=== PATIENT | female | born 1935 | race African-American/Black ===

== ENCOUNTER → 2018-09-30 | Day surgery (SDC) | payer MEDICARE ==
[2018-09-25 10:43] LABS: BASOPHILS # (AUTO) 0.1 (0.0-0.1); BASOPHILS % 0.9 % (0.0-1.0); EOSINOPHILS # (AUTO) 0.2 (0.0-0.4); EOSINOPHILS % 2.8 % (0.0-6.0); HEMATOCRIT 40.6 % (34.2-44.1); HEMOGLOBIN 12.9 g/dL (12.0-16.0); LYMPHOCYTES # (AUTO) 1.5 (1.0-3.2); LYMPHOCYTES % 25.7 % (18.0-39.1); MEAN CORPUSCULAR HEMOGLOBIN 28.2 pg (28-32); MEAN CORPUSCULAR HGB CONC 31.8 g/dL (31-35); MEAN CORPUSCULAR VOLUME 88.8 fL (81-99); MONOCYTES # (AUTO) 0.5 (0.2-0.8); MONOCYTES % 9.1 % (4.4-11.3); NEUTROPHILS # (AUTO) 3.5 (2.1-6.9); NEUTROPHILS % 61.3 % (38.7-80.0); PLATELET COUNT 268 x10e3/uL (140-360); RED BLOOD COUNT 4.57 x10e6/uL (3.6-5.1); RED CELL DISTRIBUTION WIDTH 14.7 % (11.7-14.4)
[2018-09-25 11:05] LABS: ANION GAP 13.2 mmol/L (8-16); BLOOD UREA NITROGEN 11 mg/dL (7-26); BUN/CREATININE RATIO 14 (6-25); CALCIUM 9.8 mg/dL (8.4-10.2); CARBON DIOXIDE 28 mmol/L (22-29); CHLORIDE 101 mmol/L (98-107); CREATININE, SERUM 0.81 mg/dL (0.57-1.11); EST GLOMERULAR FILTRATION RATE > 60 ML/MIN (60-); GLUCOSE 109 mg/dL (74-118); POTASSIUM 4.2 mmol/L (3.5-5.1); SODIUM 138 mmol/L (136-145)
--- NOTE | 2018-09-25 11:13 | Diagnostic Imaging Report ---
EXAM: CHEST 2 VIEWS, PA and lateral DATE: 09/25/2018 Time stamp on exam: 10:16 AM INDICATION: Preoperative COMPARISON: None FINDINGS: LINES/TUBES: None LUNGS: No consolidations or edema. PLEURA: No effusions or pneumothorax. HEART AND MEDIASTINUM: Normal size and contour. BONES AND SOFT TISSUES: No acute findings. Degenerative flowing osteophytosis of the thoracic spine. IMPRESSION: No acute thoracic abnormality. Signed by: Dr. Roldan Garg DO on 09/25/2018 11:10 AM
--- NOTE | 2018-09-25 11:24 | Diagnostic Imaging Report ---
Abdomen, two views. History: Renal stones. Findings: Multiple renal stones are noted overlying the left kidney with a conglomerate largest size measuring 12.7 cm. Smaller stones are noted adjacent to this larger stone which is likely within the renal pelvis. There is an 8 mm interpolar right renal stone. Pelvic calcifications could represent stones versus phleboliths. The intestinal gas pattern is nonobstructive. There no masses. The osseous structures reveal degenerative changes of the spine. IMPRESSION: 1. No acute abdominal abnormality. 2. Multiple renal stones. Signed by: Dr. Roldan Garg DO on 09/25/2018 11:21 AM
[~2018-09-30] MED LIST: AMLODIPINE BESY10 MG PO; ATROPINE SULFATE 1 MG/ML VIAL ONE; B&O 60MG R/S 60 MG SUPP PR ONE; CEFTRIAXONE SOD 1 GM/NS 50 ML 50 ML IV ONE; DEXAMETHASONE SOD PHOS INJ 4 MG/ML VIAL ONE; FENTANYL CITRATE/PF 100MCG/2 ML INJ ONE; FUROSEMIDE40 MG PO; IOPAMIDOL 610MG/1ML 300 MG/ML VIAL IV ONE; LIDOCAINE HCL 2% LOCAL INJ 5 ML SDV VIAL INJ ONE; METAMUCIL POWD283 GM PO; METOPROLOL TART25 MG PO; MICARDIS40 MG PO; NORCO 5-325 TA1 EACH PO; ONDANSETRON HCL INJ 2MG/ML 2ML 2 MG/ML VIAL ONE; PROPOFOL IV EMULSION 10 MG/ML 20 ML VIAL ONE; SEVOFLURANE INHAL SOLN 250 ML PEN BTL ONE; SIMVASTATIN20 MG PO; VIT D2 PO; ZANTAC150 MG PO
--- OUTSIDE RECORDS SUMMARY | 2018-09-30 05:17 | XMS REPORT ---
Author Author [facility] Address Unknown Phone Unavailable Care Team Providers Care Sewer And Drain Technician Name Role Phone ALLYSON NICK Unavailable Unavailable Problems This patient has no known problems. Allergies, Adverse Reactions, Alerts This patient has no known allergies or adverse reactions. Medications This patient has no known medications. Results Test Description Test Time Test Comments Text Results Atomic Results Result Comments ABDOMEN-1VIEW (KU) 2018-09-25 11:18:00 [place] [id number] Patient Name: LYLY CONNELL MR #: [id number] : 1935 Age/Sex: 83/F Req #: [id number] Adm Physician: Ordered by: ALLYSON NICK MD Report #: [id number] Location: OR Room/Bed: Procedure: [id number] DX/ABDOMEN-1VIEW (KUB) Exam Date: Exam Time: REPORT STATUS: Signed Abdomen, two views. History: Renal stones. Findings: Multiple renal stones are noted overlying the left kidney with a conglomerate largest size measuring 12.7 cm. Smaller stones are noted adjacent to this larger stone which is likely within the renal pelvis. There is an 8 mm interpolar right renal stone. Pelvic calcifications could represent stones versus phleboliths. The intestinal gas pattern is nonobstructive. There no masses. The osseous structures reveal degenerative changes of the spine. IMPRESSION: 1. No acute abdominal abnormality. 2. Multiple renal stones. Signed by: Dr. Raffi Garg DO on 09/25/2018 11:21 AM Dictated By: RAFFI GARG DO 1121 Transcribed By: LEIDY on 09/25/18 112 COPY TO: ALLYSON NICK MD CHEST 2 VIEWS 2018-09-25 11:08:00 [place] [id number] Patient Name: LYLY CONNELL MR #: [id number] : 1935 Age/Sex: 83/F Req #: [id number] Adm Physician: Ordered by: ALLYSON NICK MD Report #: [id number] Location: OR Room/Bed: Procedure: [id number] DX/CHEST 2 VIEWS Exam Date: Exam Time: REPORT STATUS: Signed EXAM: CHEST 2 VIEWS, PA and lateral DATE: 09/25/2018 Time stamp on exam: 10 :16 AM INDICATION: Preoperative COMPARISON: None FINDINGS: LINES/TUBES: None LUNGS: No consolidations or edema. PLEURA: No effusions or pneumothorax. HEART AND MEDIASTINUM: Normal size and contour. BONES AND SOFT TISSUES: No acute findings. Degenerative flowing osteophytosis of the thoracic spine. IMPRESSION: No acute thoracic abnormality. Signed by: Dr. Raffi Garg DO on 09/25/2018 11:10 AM Dictated By: RAFFI GARG DO 1110 Transcribed By: LEIDY on 09/25/18 1110 COPY TO: ALLYSON NICK MD SCR MAMM BILATERAL ALEXI CAD DIGITAL 2018-07-07 09:19:13 - SCR MAMM BILATERAL ALEXI CAD DIGITALBILATERAL DIGITAL SCREENING MAMMOGRAM 3D/2D WITH CAD: 07/04/2018CLINICAL: Asymptomatic. Digital breast tomosynthesis was performed in addition to routine CC and MLO views. Current mammographic images were evaluated by either a [employer] M-Vu or a [employer] ImageChecker CAD (computer aided detection system). Comparison is made to exams dated 07/01/2017 mammogram - [facility], 02/03/2016 mammogram, and 02/01/2015 mammogram - [facility]. There are scattered fibroglandular tissues in both breasts. No suspicious mass, architectural distortion, malignant type calcification, or lymph node abnormality detected. Breast architecture is stable compared to prior exams.IMPRESSION: NEGATIVEThere is no mammographic evidence of malignancy. Resume annual screening mammography in one year. Guilhreme Dickey M.D. ss/penrad:07/07/2018 09:19:13 Ditching Machine Engineer: Mindy KINCAID, [facility] sent: BIRADS 1-2 Normal Mammogram BI-RADS: 1 Negative
--- OUTSIDE RECORDS SUMMARY | 2018-09-30 05:17 | XMS REPORT | Clinical Summary ---
Author Author [facility] Organization [facility] Address Unknown Phone Unavailable Care Team Providers Care Wind Farm Designer Name Role Phone Claudio Gandhi MD PCP Allergies No Known Allergies Medications End Date Status Medication Sig Dispensed Refills Start Date Active furosemide (LASIX) 40 mg Take 40 mg by 0 tablet mouth 2 (two) times a day. Active metoprolol tartrate Take 25 mg by 0 (LOPRESSOR) 25 mg tablet mouth 2 (two) times a day. Active traMADol (ULTRAM) 50 mg Take 50 mg by 0 tablet mouth every 6 (six) hours as needed for moderate pain. Active doxazosin (CARDURA) 2 MG Take 2 mg by 0 tablet mouth nightly. Active simvastatin (ZOCOR) 10 MG Take 10 mg by 0 tablet mouth nightly. Active amLODIPine (NORVASC) 10 Take 10 mg by 0 mg tablet mouth daily. Active losartan (COZAAR) 100 MG Take 100 mg 0 tablet by mouth daily. Active omeprazole (PriLOSEC) 40 Take 40 mg by 0 MG capsule mouth daily. Active aspirin (ECOTRIN) 81 MG Take 81 mg by 0 enteric coated tablet mouth daily. Active psyllium seed, sugar, Take by 0 (METAMUCIL) powder mouth. Active albuterol (PROVENTIL) 2.5 Take 2.5 mg 0 mg /3 mL (0.083 %) by nebulizer solution nebulization every 6 (six) hours as needed for wheezing. Active Problems No known active problems Family History Medical History Relation Name Comments Heart attack Father Breast cancer Mother Diabetes Sister Stomach cancer Sister Hypertension Sister Relation Name Status Comments Father Mother Sister Sister Social History Date Tobacco Use Types Packs/Day Years Used Former Smoker Alcohol Use Drinks/Week oz/Week Comments No Sex Assigned at Date Recorded Not on file Industry Job Start Date Occupation Not on file Not on file Not on file Travel End Travel History Travel Start No recent travel history available. Last Filed Vital Signs Not on file Plan of Treatment Health Maintenance Due Date Last Done Comments SHINGLES VACCINES (#1) 1986 65+ PNEUMOCOCCAL VACCINE 2001 (1 of 2 - PCV13) INFLUENZA VACCINE 10/30/2018 Results Not on fileafter 09/29/2017 Insurance Type Payer Benefit Subscriber ID Effective Phone Address Plan / Dates Group HMO [employer] CIGNA xxxxxxxxx 2016- [employer] Present [facility] Advance Directives Patient has advance care planning documents on file. For more information, drew holt contact: Victor Hugo Gagnon [address] [place] [address]
[2018-09-30 09:30] VITALS: BP 143/58
--- NOTE | 2018-12-01 22:29 | Operative Report ---
DATE OF PROCEDURE: 09/30/2018 SURGEON: Mao Dominguez MD PREOPERATIVE DIAGNOSES: 1. Left nephrolithiasis. 2. Potential for renal colic. 3. Microscopic hematuria. 4. Mixed type urinary incontinence. POSTOPERATIVE DIAGNOSES: 1. Left nephrolithiasis. 2. Potential for renal colic. 3. Microscopic hematuria. 4. Mixed type urinary incontinence. 5. Grade 2 cystocele. 6. Grade 3 rectocele. 7. Urethral caruncle. OPERATIONS PERFORMED: 1. Left-sided extracorporeal shockwave lithotripsy (separate procedure performed for the 1.4 cm left lower pole calculus done from separate approach). 2. Cystourethroscopy with bilateral ureteral catheterization and retrograde ureteropyelography (separate procedure performed for the microscopic hematuria). 3. Interpretation of retrograde ureteropyelography. 4. Supervision of fluoroscopy, no radiologist present. 5. Cystourethroscopy with insertion of left indwelling ureteral stent (separate procedure performed to relieve hydronephrosis and any renal colic). 6. Pelvic examination under anesthesia. ANESTHESIA: General. COMPLICATIONS: None. CLINICAL SUMMARY: Shwetha Thompson is an 83-year-old woman with the above preoperative diagnoses. She is brought for the above procedure. She is aware of the risks of bleeding, infection, injury to adjacent structures, need for additional procedures, and elected to proceed. OPERATIVE PROCEDURE IN DETAIL: Informed consent was verified. Shwetha Thompson was properly identified, taken to the operating room, and placed on the lithotripsy table in supine position. Anesthesia was uneventfully begun. The patient's stone burden was localized with biplanar fluoroscopy. A total of 3000 shocks were delivered with fragmentation noted. The patient was then carefully gently repositioned in the dorsal lithotomy position with all pressure points well padded. Her genitalia were prepared in sterile fashion. The cystoscope sheath was inserted into the patient's urethra and bladder was drained. Panendoscopy of the urinary bladder revealed no suspicious mucosal lesions, no tumors, no stones, no diverticula. Normally positioned and configured ureteral orifices were identified. The ureteral catheter was used to cannulate each ureter and retrograde ureteropyelogram was performed. With cystoscopic and fluoroscopic guidance, the left-sided indwelling ureteral stent was then placed. It was coiled in the patient's kidney as well as the patient's bladder. The retaining suture was cut short. Interpretation of retrograde ureteropyelography contrast was instilled in retrograde fashion bilaterally. On left hand side, there were multiple filling defects corresponding to the stone. On the right side unobstructed drainage was observed fluoroscopically. On the right hand side, there was a stent in good position. The left hand side coiled the patient's kidney as well as the patient's bladder. The patient's bladder was drained and cystoscope was withdrawn. Pelvic examination revealed a grade 2 cystocele, grade 3 rectocele. There was urethral caruncle noted. There was also atrophic (senile) vaginitis. The patient was then uneventfully reversed from anesthesia and taken to recovery room in stable condition. There were no complications to the procedure. She tolerated the procedure well. PLANS: Plans will be to return the patient to the operating room to remove her stent, perform left ureteroscopy with indicated procedures as well the possible right ureteroscopy. MD LUNA Burciaga/MODEdi /[id number] MTDD
== END | disposition home or self-care (01) ==
LOC: OR 05:14
PROVIDERS: ATTEND Urology
DX: N20.0 Calculus of kidney (principal); N39.46 Mixed incontinence; N81.10 Cystocele, unspecified; N81.6 Rectocele; N36.2 Urethral caruncle; Z96.0 Presence of urogenital implants; N13.30 Unspecified hydronephrosis; I10 Essential (primary) hypertension; E11.9 Type 2 diabetes mellitus without complications; K21.9 Gastro-esophageal reflux disease without esophagitis; M19.90 Unspecified osteoarthritis, unspecified site; M53.9 Dorsopathy, unspecified; J44.9 Chronic obstructive pulmonary disease, unspecified; G47.33 Obstructive sleep apnea (adult) (pediatric); Z88.6 Allergy status to analgesic agent; Z88.8 Allergy status to other drugs, medicaments and biological substances; Z01.810 Encounter for preprocedural cardiovascular examination; Z01.812 Encounter for preprocedural laboratory examination; Z01.818 Encounter for other preprocedural examination; Z87.891 Personal history of nicotine dependence
CPT/HCPCS: 36415; 50590; 52332; 71046; 74018; 80048; 83970; 84550; 85025; 93005; C1758; C1874; J0461; J0696; J1100; J2001; J2405; J2704; Q9967; J3010

== ENCOUNTER → 2018-12-03 | Day surgery (SDC) | payer MEDICARE ==
[~2018-12-03] MED LIST changes: -ATROPINE SULFATE 1 MG/ML VIAL ONE; +GENTAMICIN 80MG/NS 100 ML 200 ML IV ONE; +GLYCOPYRROLATE INJ 1MG/ 5 ML SYR ONE; -IOPAMIDOL 610MG/1ML 300 MG/ML VIAL IV ONE; +KETOROLAC TROMETHAMINE 30 MG/ML VIAL ONE; +PHENYLEPHRINE HCL 1% 10 MG/ML VIAL ONE
--- OUTSIDE RECORDS SUMMARY | 2018-12-03 06:42 | XMS REPORT | Clinical Summary ---
Author Author [facility] Address Unknown Phone Unavailable Care Team Providers Care It Software Developer Name Role Phone Claudio Gandhi MD PCP [...] Use Types Packs/Day Years Used Former Smoker Drinks/Week oz/Week Comments Alcohol Use No Sex Assigned at Date Recorded Not [...] INFLUENZA VACCINE 10/30/2018 Results Not on fileafter 12/02/2017 Insurance Type Payer Benefit Subscriber ID Effective Phone Address Plan / Dates Group HMO [employer] CIGNA xxxxxxxxx 2016- [employer] Present [facility] Advance Directives For more information, please contact: [phone] Patient Sheet Hanger Explanation Type Date Recorded Advance Directives, Living Will and Medical Power of Choir Singer
[2018-12-03 07:25] LABS: BASOPHILS # (AUTO) 0.1 (0.0-0.1); BASOPHILS % 1.1 % (0.0-1.0); EOSINOPHILS # (AUTO) 0.1 (0.0-0.4); EOSINOPHILS % 1.6 % (0.0-6.0); HEMATOCRIT 41.2 % (34.2-44.1); HEMOGLOBIN 12.6 g/dL (12.0-16.0); LYMPHOCYTES # (AUTO) 1.3 (1.0-3.2); LYMPHOCYTES % 23.7 % (18.0-39.1); MEAN CORPUSCULAR HEMOGLOBIN 27.6 pg (28-32); MEAN CORPUSCULAR HGB CONC 30.6 g/dL (31-35); MEAN CORPUSCULAR VOLUME 90.4 fL (81-99); MONOCYTES # (AUTO) 0.5 (0.2-0.8); MONOCYTES % 8.5 % (4.4-11.3); NEUTROPHILS # (AUTO) 3.6 (2.1-6.9); NEUTROPHILS % 64.7 % (38.7-80.0); PLATELET COUNT 268 x10e3/uL (140-360); RED BLOOD COUNT 4.56 x10e6/uL (3.6-5.1); RED CELL DISTRIBUTION WIDTH 14.6 % (11.7-14.4)
[2018-12-03 07:44] LABS: ANION GAP 12.7 mmol/L (8-16); BLOOD UREA NITROGEN 12 mg/dL (7-26); BUN/CREATININE RATIO 14 (6-25); CALCIUM 9.7 mg/dL (8.4-10.2); CARBON DIOXIDE 27 mmol/L (22-29); CHLORIDE 101 mmol/L (98-107); CREATININE, SERUM 0.86 mg/dL (0.57-1.11); EST GLOMERULAR FILTRATION RATE > 60 ML/MIN (60-); GLUCOSE 106 mg/dL (74-118); POTASSIUM 3.7 mmol/L (3.5-5.1); SODIUM 137 mmol/L (136-145)
[2018-12-03 12:30] VITALS: BP 149/79
--- NOTE | 2019-01-06 05:21 | Operative Report ---
DATE OF PROCEDURE: 12/03/2018 SURGEON: Mao Dominguez MD PREOPERATIVE DIAGNOSES: 1. Left ureterolithiasis. 2. Bilateral nephrolithiasis. 3. Bilateral indwelling ureteral stents. 4. Grade 1 cystocele. 5. Grade 4 rectocele. 6. Atrophic (senile) vaginitis. OPERATIONS PERFORMED: Note, these were all staged procedures as part of multi-staged and multi-step process in managing the patient's urolithiasis. 1. Cystourethroscopy with complicated removal of bilateral indwelling ureteral stents (separate procedure performed with separate scope for the diagnosis of stents). 2. Left ureteroscopy with stone manipulation (separate procedure performed to manipulate the left ureteral stone and manipulated back into the patient's left kidney). 3. Bilateral flexible ureteropyeloscopy with holmium laser lithotripsy and insertion of stents (separate procedure performed for the bilateral nephrolithiasis). 4. Radiological services with supervision and interpretation of ureteroscopy. 5. Interpretation of retrograde ureteropyelography. 6. Supervision of fluoroscopy, no radiologist present. 7. Pelvic examination under anesthesia. ANESTHESIA: General. COMPLICATIONS: None. CLINICAL SUMMARY: Shwetha Thompson is an 83-year-old woman with bilateral nephrolithiasis and bilateral indwelling ureteral stents. She has undergone previous procedures and is brought for additional procedures in a staged fashion. She is aware of the risks of bleeding, infection, injury to adjacent structures, need for additional procedures and elected to proceed. OPERATIVE PROCEDURE IN DETAIL: Informed consent was verified. Shwetha Thompson was properly identified, taken the operating room, placed on the cystoscopy table in supine position. Anesthesia was uneventfully begun. The patient was then carefully and gently repositioned in dorsal lithotomy position with all pressure points well padded. Her genitalia were prepared and draped in usual sterile fashion. The cystoscope sheath with a visual obturator in place was atraumatically inserted into the patient's urethra and bladder was drained. Panendoscopy revealed a stent emerging from both ureteral orifices. The left stent was significantly encrusted. There was stone material that could be visible inside the lumen of the stent through one of the stent drainage holes. A guidewire was then placed alongside the stent and guided to the level of the patient's kidney. The stone was then grasped, completely removed and discarded. Semi-rigid ureteroscopy was then placed. The ureteroscope was brought up alongside the stent up into the ureter. We identified a stone. The stone was too large to extract. We tried to manipulate proximally due to the fact that we need to perform laser lithotripsy within the kidney regardless. We push the stone into the patient's renal pelvis. Once this ureteroscopy and manipulation was completed, a secondary guidewire was placed and the flexible ureteroscope was then brought up over the guidewire into the patient's kidney where we identified the stone material. We went and proceeded with performing holmium laser lithotripsy and pulverizing all this tremendous amount of stone material into smaller fragments. Multiple fragments were extracted utilizing a flexible ureteroscopy sheath. With cystoscopic and fluoroscopic guidance, a left-sided indwelling ureteral stent was then placed, it was coiled in the patient's kidneys as well as the patient's bladder. The retaining suture was cut short. A guidewire was then placed into the right ureter and guided to the level of the patient's kidney. The stent was then grasped, completely removed and discarded. Flexible ureteroscopy was then performed. The ureteroscope was brought up over the guidewire up into the right kidney, where we identified additional stones. Holmium laser lithotripsy was performed until all the stone burden was smaller and with cystoscopic fluoroscopic guidance a right-sided indwelling ureteral stent was then placed it was coiled in the patient's kidney as well as in the patient's bladder. The retaining suture was cut short on this side as well. Interpretation of retrograde ureteropyelography contrast was instilled in retrograde fashion bilaterally. There was bilateral chronic fullness of the collecting system. There were filling defects which corresponded to the stones that we lasered. The stents were in good position coiled to the patient's kidneys as well as the patient's bladder at the end of the case. The patient's bladder was drained, cystoscope was withdrawn. Pelvic examination revealed a grade 1 cystocele and a grade 4 rectocele, there was atrophic (senile) vaginitis. No suspicious mucosal lesions were identified. The patient was then uneventfully reversed from anesthesia and taken to recovery room in stable condition. There were no complications at the procedure. The patient tolerated the procedure well. Explicit postoperative instructions were given. We will plan on returning the patient back to the operating room in several weeks to remove her stent, perform bilateral ureteroscopies and hopefully move the patient closer to being stent free and stone free. MD LUNA Burciaga/RAMESH /[id number]
== END | disposition home or self-care (01) ==
LOC: OR 06:40
PROVIDERS: ATTEND Urology
DX: N20.0 Calculus of kidney (principal); N20.1 Calculus of ureter; Z46.6 Encounter for fitting and adjustment of urinary device; N81.10 Cystocele, unspecified; N81.6 Rectocele; N95.2 Postmenopausal atrophic vaginitis; M19.90 Unspecified osteoarthritis, unspecified site; J44.9 Chronic obstructive pulmonary disease, unspecified; G47.33 Obstructive sleep apnea (adult) (pediatric); I10 Essential (primary) hypertension; E78.5 Hyperlipidemia, unspecified; E11.9 Type 2 diabetes mellitus without complications; K21.9 Gastro-esophageal reflux disease without esophagitis; R05 Cough; K57.90 Diverticulosis of intestine, part unspecified, without perforation or abscess without bleeding; F32.9 Major depressive disorder, single episode, unspecified; Z88.6 Allergy status to analgesic agent; Z88.8 Allergy status to other drugs, medicaments and biological substances; Z87.891 Personal history of nicotine dependence
CPT/HCPCS: 36415; 52356; 74420; 80048; 85025; 88300; C2617; J0696; J1100; J1580; J1885; J2001; J2370; J2405; J2704; J3010; J3490

== ENCOUNTER → 2019-01-02 | Day surgery (SDC) | payer MEDICARE ==
[~2019-01-02] MED LIST changes: +ALBUTEROL0.63 MG/3 INH; -FENTANYL CITRATE/PF 100MCG/2 ML INJ ONE; +GENTAMICIN 80MG/NS 100 ML 100 ML IV ONE; -GENTAMICIN 80MG/NS 100 ML 200 ML IV ONE; -GLYCOPYRROLATE INJ 1MG/ 5 ML SYR ONE; +IOPAMIDOL 300MG/ML 50ML INFUS..BTL IV ONE; -KETOROLAC TROMETHAMINE 30 MG/ML VIAL ONE; -ONDANSETRON HCL INJ 2MG/ML 2ML 2 MG/ML VIAL ONE; -PHENYLEPHRINE HCL 1% 10 MG/ML VIAL ONE; +ULTRAM 50MG50 MG PO
[2019-01-02 11:50] VITALS: BP 139/88
--- NOTE | 2019-03-15 23:54 | Operative Report ---
DATE OF PROCEDURE: 01/02/2019 SURGEON: Mao Dominguez MD PREOPERATIVE DIAGNOSES: 1. Bilateral nephrolithiasis. 2. Bilateral hydronephrosis. 3. Bilateral indwelling ureteral stents. POSTOPERATIVE DIAGNOSES: 1. Bilateral nephrolithiasis. 2. Bilateral hydronephrosis. 3. Bilateral indwelling ureteral stents. 4. Cystocele. 5. Rectocele. 6. Urethral caruncle. 7. Atrophic vaginitis. 8. Mixed type urinary incontinence. OPERATIONS PERFORMED: Note these were all staged procedures as part of multi-staged and multi-step process of managing the patient's extensive urolithiasis. 1. Cystourethroscopy and complicated removal of bilateral indwelling ureteral stents (separate procedure performed with separate scope for the diagnosis of stents). 2. Bilateral ureteroscopy with stone manipulation and extraction (extensive bilateral procedures to manage extensive bilateral stone disease). 3. Cystourethroscopy with insertion of bilateral indwelling ureteral stents (separately performed to relieve the bilateral hydronephrosis). 4. Urological Services with supervision and interpretation of ureteroscopy. 5. Interpretation of retrograde ureteropyelography. 6. Supervision of fluoroscopy more than an hour, no radiologist present. 7. Pelvic examination under anesthesia. ANESTHESIA: General. COMPLICATIONS: None. CLINICAL SUMMARY: Shwetha Thompson is an 83-year-old woman with complicated urological stone history. The patient has had bilateral stones. She is status post laser of both sides for stones. She also has a history of left lower pole staghorn calculus and is status post left ESWL. She is brought to the operating room today to manage as much of her stone burden as possible. She is aware of the risks of bleeding, infection, injury to adjacent structures, need for additional procedures and elected to proceed. OPERATIVE PROCEDURE IN DETAIL: Informed consent was verified. Shwetha Thompson was properly identified, taken to the operating room, placed on the cystoscopy table in supine position. Anesthesia was uneventfully begun. The patient was then carefully and gently repositioned in the dorsal lithotomy position. All pressure points well padded. Her genitalia were prepared and draped in usual sterile fashion. The cystoscope sheath with obturator in place was atraumatically inserted in the patient's urethra and bladder was drained. Panendoscopy revealed stents emerging from both ureteral orifices. A guidewire was then placed below the right ureter and guided to the level of the patient's kidney. The stent was then grasped, completely removed and discarded. Semi-rigid ureteroscopy was then performed. The distal ureter was unremarkable upon uneventful ureteroscopy. Flexible ureteroscope was then placed. Flexible ureteroscopy sheath was utilized to protect the ureter. We brought the ureteroscope into the patient's kidney where numerous stones were identified. Numerous passes were performed of ureteroscopy. Grasp of stone material with a Nitinol tipless basket and atraumatic extraction. These stones had the appearance consistent with prior laser lithotripsy with sharp edges, jagged edges and laser holes. We performed a very extensive procedure and rendered the patient's kidney virtually stone free. Fine sand remained that was too small to be grasped by the ureteral scope. With cystoscopic and fluoroscopic guidance, a right-sided indwelling ureteral stent was then placed. It was coiled in the patient's kidney as well as the patient's bladder. The retaining suture was cut short. An identical procedure was performed on the left hand side with identical results. Again, the amount of stone burden on the left hand side was extensive as well. Interpretation of retrograde ureteropyelography: Contrast was instilled in a retrograde fashion bilaterally by the ureteroscope. There was hydronephrosis present bilaterally. It was difficult to probate judge filling defects due to dilutional effect. The stents were in good position, coiled the patient's kidneys as well as the patient's bladder at the end of the case. The patient's bladder was drained. Cystoscope was withdrawn. Pelvic examination under anesthesia revealed a cystocele, rectocele, urethral caruncle and atrophic vaginitis. No abnormal palpable pelvic masses could be appreciated. There were no obvious mucosal lesions. The patient was then uneventfully reversed from anesthesia and taken to recovery room in stable condition. There were no complications to the procedure. She tolerated the procedure well. Plan will be to return the patient to the operating room after several weeks to perform bilateral ureteroscopies and hopefully at that point in time render the patient stent free and stone free. We also instructed the patient she needs ongoing urological followup and stone prevention protocol following a metabolic stone workup. Mao MD Angelica OH/MODL /[id number] cc: Emely Robles MD
== END | disposition home or self-care (01) ==
LOC: OR 08:05
PROVIDERS: ATTEND Urology
DX: N13.2 Hydronephrosis with renal and ureteral calculous obstruction (principal); Z96.0 Presence of urogenital implants; I10 Essential (primary) hypertension; E11.9 Type 2 diabetes mellitus without complications; E78.5 Hyperlipidemia, unspecified; K21.9 Gastro-esophageal reflux disease without esophagitis; K57.90 Diverticulosis of intestine, part unspecified, without perforation or abscess without bleeding; M19.90 Unspecified osteoarthritis, unspecified site; Z87.891 Personal history of nicotine dependence; R35.1 Nocturia; N39.46 Mixed incontinence; Z87.442 Personal history of urinary calculi; Z84.1 Family history of disorders of kidney and ureter; Z80.52 Family history of malignant neoplasm of bladder; R31.29 Other microscopic hematuria; R35.0 Frequency of micturition; E66.9 Obesity, unspecified; N32.81 Overactive bladder; N81.89 Other female genital prolapse; N81.6 Rectocele; N36.41 Hypermobility of urethra; N95.2 Postmenopausal atrophic vaginitis; N81.10 Cystocele, unspecified; N36.2 Urethral caruncle; Z88.5 Allergy status to narcotic agent; E66.01 Morbid (severe) obesity due to excess calories; J44.9 Chronic obstructive pulmonary disease, unspecified; G47.33 Obstructive sleep apnea (adult) (pediatric); M06.9 Rheumatoid arthritis, unspecified
CPT/HCPCS: 52332; 52352; 74420; 88300; C1766; C2617; J0696; J1100; J1580; J2001; J2704; Q9967

== ENCOUNTER → 2019-02-23 | Outpatient (CLI) | payer MEDICARE ==
[~2019-02-23] MED LIST changes: -ALBUTEROL0.63 MG/3 INH; -B&O 60MG R/S 60 MG SUPP PR ONE; -CEFTRIAXONE SOD 1 GM/NS 50 ML 50 ML IV ONE; -DEXAMETHASONE SOD PHOS INJ 4 MG/ML VIAL ONE; -GENTAMICIN 80MG/NS 100 ML 100 ML IV ONE; -IOPAMIDOL 300MG/ML 50ML INFUS..BTL IV ONE; -LIDOCAINE HCL 2% LOCAL INJ 5 ML SDV VIAL INJ ONE; -PROPOFOL IV EMULSION 10 MG/ML 20 ML VIAL ONE; -SEVOFLURANE INHAL SOLN 250 ML PEN BTL ONE; -ULTRAM 50MG50 MG PO
--- NOTE | 2019-02-23 10:46 | Diagnostic Imaging Report ---
Exam: KUB - 2 views Indication: Renal calculus Comparison: KUB of 09/25/2018, retrograde pyelogram of 12/03/2018 Findings: Interval placement of bilateral internal nephroureteral stents. 1.9 cm conglomerate left renal calculi. Right middle and upper pole renal calculi measure up to 4 mm. And 8 mm calcific density overlying the course of the left nephroureteral stent may represent a phlebolith versus ureteral calculus. Phleboliths in the pelvis. Nonobstructive bowel gas pattern. Status post cholecystectomy. Degenerative changes of the visualized spine and both hip joints. Impression: Bilateral renal calculi as above. Bilateral nephroureteral stents in place. Signed by: Saeed Townsend MD on 02/23/2019 10:43 AM
== END ==
LOC: RAD 09:25
PROVIDERS: ATTEND Urology
DX: N20.0 Calculus of kidney (principal)
CPT/HCPCS: 74018

== ENCOUNTER → 2019-03-20 | Day surgery (SDC) | payer MEDICARE ==
--- NOTE | 2019-03-18 12:51 | Diagnostic Imaging Report ---
Abdomen, 1 view. History: Preop, stent replacement. Findings: Bilateral internal ureteral stents are present extending from the region of the kidneys to the bladder. Air is scattered throughout nondilated small and large bowel. Ill-defined calcifications are projected over the region of the left renal lower pole. Calcified phlebolith is present in the right pelvis. The osseous structures are intact. IMPRESSION: Non-specific bowel gas pattern. Signed by: Bereket Wilson on 03/18/2019 12:48 PM
[2019-03-18 13:03] LABS: BASOPHILS # (AUTO) 0.1 (0.0-0.1); BASOPHILS % 1.1 % (0.0-1.0); EOSINOPHILS # (AUTO) 0.1 (0.0-0.4); EOSINOPHILS % 1.8 % (0.0-6.0); HEMATOCRIT 43.6 % (34.2-44.1); HEMOGLOBIN 13.2 g/dL (12.0-16.0); LYMPHOCYTES # (AUTO) 1.8 (1.0-3.2); LYMPHOCYTES % 32.5 % (18.0-39.1); MEAN CORPUSCULAR HEMOGLOBIN 27.3 pg (28-32); MEAN CORPUSCULAR HGB CONC 30.3 g/dL (31-35); MEAN CORPUSCULAR VOLUME 90.3 fL (81-99); MONOCYTES # (AUTO) 0.6 (0.2-0.8); MONOCYTES % 10.6 % (4.4-11.3); NEUTROPHILS # (AUTO) 3.1 (2.1-6.9); NEUTROPHILS % 53.6 % (38.7-80.0); PLATELET COUNT 294 x10e3/uL (140-360); RED BLOOD COUNT 4.83 x10e6/uL (3.6-5.1); RED CELL DISTRIBUTION WIDTH 14.3 % (11.7-14.4)
[2019-03-18 13:19] LABS: ANION GAP 15.4 mmol/L (8-16); BLOOD UREA NITROGEN 14 mg/dL (7-26); BUN/CREATININE RATIO 15 (6-25); CALCIUM 10.6 mg/dL (8.4-10.2); CARBON DIOXIDE 27 mmol/L (22-29); CHLORIDE 103 mmol/L (98-107); CREATININE, SERUM 0.94 mg/dL (0.57-1.11); EST GLOMERULAR FILTRATION RATE > 60 ML/MIN (60-); GLUCOSE 107 mg/dL (74-118); POTASSIUM 5.4 mmol/L (3.5-5.1); SODIUM 140 mmol/L (136-145)
[~2019-03-20] MED LIST changes: +ALBUTEROL0.63 MG/3 INH; +B&O 60MG R/S 60 MG SUPP PR ONE; +CEFTRIAXONE SOD 1 GM/NS 50 ML 50 ML IV ONE; +DEXAMETHASONE SOD PHOS INJ 4 MG/ML VIAL ONE; +GENTAMICIN 80MG/NS 100 ML 200 ML IV ONE; +IOPAMIDOL 300MG/ML 50ML INFUS..BTL IV ONE; +LIDOCAINE HCL 2% LOCAL INJ 5 ML SDV VIAL INJ ONE; +ONDANSETRON HCL INJ 2MG/ML 2ML 2 MG/ML VIAL ONE; +PROPOFOL IV EMULSION 10 MG/ML 20 ML VIAL ONE; +SEVOFLURANE INHAL SOLN 250 ML PEN BTL ONE; +ULTRAM 50MG50 MG PO
[2019-03-20 14:11] LABS: BLOOD UREA NITROGEN 10 mg/dL (7-26); BUN/CREATININE RATIO 12 (6-25); CALCIUM 9.4 mg/dL (8.4-10.2); CARBON DIOXIDE 24 mmol/L (22-29); CHLORIDE 105 mmol/L (98-107); CREATININE, SERUM 0.81 mg/dL (0.57-1.11); EST GLOMERULAR FILTRATION RATE > 60 ML/MIN (60-); GLUCOSE 99 mg/dL (74-118); SODIUM 139 mmol/L (136-145)
[2019-03-20 16:10] VITALS: BP 141/68
--- NOTE | 2019-05-06 00:11 | Operative Report ---
DATE OF PROCEDURE: 03/20/2019 SURGEON: Mao Dominguez MD PREOPERATIVE DIAGNOSES: 1. Urolithiasis. 2. Left indwelling ureteral stent. 3. Right indwelling ureteral stent. POSTOPERATIVE DIAGNOSES: 1. Left nephrolithiasis. 2. Right nephrolithiasis. 3. Left ureterolithiasis. 4. Right ureterolithiasis. 5. Bilateral indwelling ureteral stents. 6. Grade 1 cystocele. 7. Grade 3 rectocele. 8. Atrophic (senile) vaginitis. 9. Urethral caruncle. OPERATION PERFORMED: Note, these were all staged procedures as part of multi-staged and multi-step process in managing the patient's urolithiasis. 1. Cystourethroscopy with complicated removal of bilateral indwelling ureteral stents (separate procedure performed for the diagnosis of stents done with separate scope). 2. Right ureteroscopy with stone manipulation (separate procedure performed for the right ureterolithiasis). 3. Right ureteral pyeloscopy with stone manipulation (separate procedure performed for the right nephrolithiasis). 4. Cystourethroscopy with removal of left indwelling ureteral stent (separate procedure performed for the diagnosis of stent done with separate scope). 5. Left semi-rigid ureteroscopy with stone manipulation and extraction (separate procedure performed for the left ureterolithiasis). 6. Left ureteral pyeloscopy with stone manipulation (separate procedure performed for the left nephrolithiasis). 7. Radiological services for supervision and interpretation of ureteroscopy. 8. Interpretation of retrograde ureteropyelography. 9. Supervision of fluoroscopy, no radiologist present. 10. Pelvic examination under anesthesia. ANESTHESIA: General. COMPLICATIONS: None. CLINICAL SUMMARY: Shwetha Thompson is an 83-year-old woman with nephrolithiasis. She has undergone previous surgery. She is brought for a staged procedure. She is aware of the risks of bleeding, infection, injury to adjacent structures, need for additional procedures and elected to proceed. OPERATIVE PROCEDURE IN DETAIL: Informed consent was verified, Shwetha Thompson was properly identified, taken to the operating room, placed on the cystoscopy table in supine position. Anesthesia was uneventfully begun. The patient was then carefully gently repositioned in the dorsal lithotomy position with all pressure points well padded. Her genitalia were prepared and draped in usual sterile fashion. The cystoscope sheath with obturator in place was atraumatically inserted the patient's urethra and the bladder was drained. Panendoscopy revealed no suspicious mucosal lesions and no tumors. There were stents emerging from both ureteral orifices. A guidewire was then placed alongside of the left stent and guided to the level of the patient's kidney. The stent was then grasped, completely removed and discarded. Semi-rigid ureteroscope was then brought up alongside the guidewire into the left ureter where we identified a large ureteral stone. The stone was grasped and then negotiated atraumatically out and sent for chemical analysis. A secondary guidewire was left in place. Flexible ureteroscope was then brought up over the guidewire and guided to the level of the patient's left kidney. Panendoscopy of the intrarenal collecting system revealed small left renal stones. These stones were manipulated and irrigated free and grasped and extracted. Flexible ureteroscopy sheath was utilized. There was a residual embedded stone that was attached to the lower pole calyx that was with two acute of an angle for me to laser and despite multiple attempts, I could not dislodge it and remove it and it needs to be to undergo ESWL. We carefully examined the rest of the kidney was free of stones and carefully examined the ureter on the left side that was free of any stones. The procedure was extremely atraumatic and therefore a new stent was not believed to be required. A guidewire was then placed alongside the right stent and guided to the level of the patient's kidney. The stent was then grasped, completely removed and discarded. Semi-rigid ureteroscope was then passed, placed alongside the guidewire into the right ureter where we identified sand. No large enough stone to grasp was identified. We irrigated the sand to loosen it from the mucosa and it should be passable, a secondary guidewire was placed. A flexible ureteroscope was then placed over the guidewire and guided to the level of the patient's kidney. Panendoscopy revealed Valentin's plaques, but there were no suspicious lesions and there were no tumors. There was sand noted as well. We irrigated the sand to loosen it from the surrounding mucosa, all the sand should be passable. No stent was left in place. Interpretation of retrograde ureteropyelography contrast was instilled in retrograde fashion bilaterally. There were filling defects which corresponded to the stones that we manipulated on left hand side. There was chronic appearing fullness of both collecting systems. Nevertheless, unobstructed drainage was observed fluoroscopically bilaterally. The patient's bladder was drained. Cystoscope was withdrawn. Pelvic examination revealed a grade 1 cystocele, grade 3 rectocele. There was atrophic (senile) vaginitis and urethral caruncle was present. The patient was then uneventfully reversed from anesthesia and taken to recovery room in stable condition. There were no complications to the procedure. The patient tolerated the procedure well. Plans will be to perform a left ESWL on the patient. At that point in time, cystoscopy with retrograde ureteropyelography may be warranted to delineate the anatomy. Mao MD [facility]/MODL /[id number] cc: Emely Robles MD
== END | disposition home or self-care (01) ==
LOC: OR 11:57
PROVIDERS: ATTEND Urology
DX: N20.2 Calculus of kidney with calculus of ureter (principal); K44.9 Diaphragmatic hernia without obstruction or gangrene; J44.9 Chronic obstructive pulmonary disease, unspecified; G47.33 Obstructive sleep apnea (adult) (pediatric); I10 Essential (primary) hypertension; N81.10 Cystocele, unspecified; N81.6 Rectocele; N95.2 Postmenopausal atrophic vaginitis; N36.2 Urethral caruncle; Z01.810 Encounter for preprocedural cardiovascular examination; Z87.442 Personal history of urinary calculi; Z96.0 Presence of urogenital implants; Z01.812 Encounter for preprocedural laboratory examination
CPT/HCPCS: 36415 ×2; 52330; 52352; 74018; 74420; 80048 ×2; 85025; 88300; 93005; C1766; J0696; J1100; J1580; J2001; J2405; J2704; Q9967; C1769

== ENCOUNTER → 2020-01-08 | Day surgery (SDC) | payer MEDICARE, OTHER ==
[2020-01-05 11:44] LABS: BASOPHILS # (AUTO) 0.1 (0.0-0.1); BASOPHILS % 1.1 % (0.0-1.0); EOSINOPHILS # (AUTO) 0.1 (0.0-0.4); EOSINOPHILS % 1.5 % (0.0-6.0); HEMATOCRIT 41.1 % (34.2-44.1); HEMOGLOBIN 12.7 g/dL (12.0-16.0); LYMPHOCYTES # (AUTO) 1.1 (1.0-3.2); LYMPHOCYTES % 20.5 % (18.0-39.1); MEAN CORPUSCULAR HGB CONC 30.9 g/dL (31-35); MEAN CORPUSCULAR VOLUME 90.7 fL (81-99); MONOCYTES # (AUTO) 0.5 (0.2-0.8); MONOCYTES % 9.2 % (4.4-11.3); NEUTROPHILS # (AUTO) 3.6 (2.1-6.9); NEUTROPHILS % 67.5 % (38.7-80.0); PLATELET COUNT 252 x10e3/uL (140-360); RED BLOOD COUNT 4.53 x10e6/uL (3.6-5.1); RED CELL DISTRIBUTION WIDTH 15.7 % (11.7-14.4)
[2020-01-05 12:09] LABS: BLOOD UREA NITROGEN 10 mg/dL (7-26); BUN/CREATININE RATIO 11 (6-25); CALCIUM 9.8 mg/dL (8.4-10.2); CARBON DIOXIDE 29 mmol/L (22-29); CHLORIDE 105 mmol/L (98-107); EST GLOMERULAR FILTRATION RATE > 60 ML/MIN (60-); GLUCOSE 101 mg/dL (74-118); SODIUM 141 mmol/L (136-145)
--- NOTE | 2020-01-05 13:00 | Diagnostic Imaging Report ---
EXAMINATION: CHEST 2 VIEWS, ABDOMEN-1VIEW ([facility]) INDICATION: Pre-operative COMPARISON: [facility]UB 03/18/2019, chest radiograph 09/25/2018 FINDINGS: LINES/TUBES:None LUNGS:The lungs are mildly hyperinflated. No focal consolidation or pulmonary edema. PLEURA:No pleural effusion or pneumothorax. MEDIASTINUM:The cardiomediastinal silhouette appears normal in size and shape. BONES/SOFT TISSUES:No acute osseous injury. ABDOMEN:Again seen is left lower pole renal conglomerate of calcifications measuring up to 15 mm. Scattered right renal calculi measure up to 5 mm. Status post cholecystectomy. Nonobstructive bowel gas pattern. No free air. Phleboliths in the pelvis. Degenerative changes of the visualized spine and both hip joints. IMPRESSION: No focal pneumonia or pulmonary edema. Redemonstration of bilateral renal calculi measuring up to 15 mm on the left and 5 mm on the right. Signed by: Saeed Townsend MD on 01/05/2020 12:57 PM
[~2020-01-08] MED LIST changes: +ERYTHROMYCIN OU; +FENTANYL CITRATE/PF 100MCG/2 ML INJ ONE; -GENTAMICIN 80MG/NS 100 ML 200 ML IV ONE; +HYDRALAZINE HCL25 MG PO; +LATANOPROST2.5 ML OU; +OXYBUTYNIN CHLOR5 MG PO
[2020-01-08 14:30] VITALS: BP 160/61
--- NOTE | 2020-01-08 23:55 | Operative Report ---
DATE OF PROCEDURE: 01/08/2020 SURGEON: Mao Dominguez MD PREOPERATIVE DIAGNOSES: 1. Left nephrolithiasis. 2. Potential for left renal colic. 3. Urinary tract infections. 4. Microhematuria. POSTOPERATIVE DIAGNOSES: 1. Left nephrolithiasis. 2. Potential for left renal colic. 3. Urinary tract infections. 4. Microhematuria. 5. Barely grade 1 very cephalad cystocele. 6. Grade 3 rectocele. 7. Urethral caruncle. 8. Atrophic (senile) vaginitis. OPERATIONS PERFORMED: Note, these were all staged procedures as part of multistaged, multistep process in managing the patient's urolithiasis. 1. Left-sided extracorporeal shockwave lithotripsy (separate procedure performed for the patient's nephrolithiasis). 2. Cystourethroscopy with bilateral ureteral catheterization and retrograde ureteropyelography (separate procedure performed for the hematuria and urinary tract infections). 3. Interpretation of retrograde ureteropyelography. 4. Supervision of fluoroscopy, no radiologist present. 5. Cystourethroscopy with insertion of left indwelling ureteral stent (separate procedure performed to relieve the potential renal colic as the patient passes her large stone burden). 6. Pelvic examination under anesthesia. ANESTHESIA: General. COMPLICATIONS: None. CLINICAL SUMMARY: Shwetha Thompson is an 84-year-old woman with bilateral nephrolithiasis. She is brought for management. She is aware of the risks of bleeding, infection, injury to adjacent structures, need for additional procedures, and elected to proceed. OPERATIVE PROCEDURE IN DETAIL: Informed consent was verified. Shwetha Thompson was properly identified, taken to the operating room, placed on the lithotripsy table in supine position. Anesthesia was uneventfully begun. The patient had a very large left lower pole stone, was localized with biplanar fluoroscopy. A total of 3000 shocks were delivered with excellent fragmentation. The patient was then carefully and gently repositioned in the dorsal lithotomy position with all pressure points well padded. Her genitalia were prepared and draped in usual sterile fashion. The cystoscope sheath with obturator in place was atraumatically inserted into the patient's urethra and bladder was drained. Panendoscopy of the urinary bladder revealed no suspicious mucosal lesions, no tumors, no stones, no diverticula. Normally configured ureteral orifices were identified. An 8-Citizen [place] ureteral catheter was used to cannulate each ureter and retrograde ureteropyelograms were performed with cystoscope and fluoroscopic guidance. A left-sided indwelling ureteral stent was then placed, it was coiled into the patient's kidney as well as the patient's bladder. The retaining suture was cut short. Interpretation of retrograde ureteropyelography contrast was instilled in retrograde fashion bilaterally. There were filling defects corresponding to the stone and clots from the lithotripsy in the lower pole calyx and left hand side. There was no significant hydronephrosis. An unobstructed drainage was observed. The stent was in good position, coiled into the patient's kidneys as well as the patient's bladder. The right hand side exhibited stones. The stones were in the right upper calyx in the infundibulum into the major calyx. Nevertheless, the remainder of the kidney and an unobstructed drainage fluoroscopically noted. The patient's bladder was drained and cystoscope was withdrawn. Pelvic examination revealed barely a cystocele to the cephalad most extent of the anterior vaginal wall well away the vaginal os. The patient also exhibited a grade 3 rectocele. There was urethral caruncle noted and atrophic (senile) vaginitis were identified. No abnormal palpable pelvic masses could be appreciated on bimanual examination. There were no obvious mucosal lesions. The patient was then uneventfully reversed from anesthesia and taken to recovery room in stable condition. There were no complications to the procedure. She tolerated the procedure well. Plans will be to return the patient to the operating room for a right ESWL in conjunction with a left ureteroscopy and we will have a holmium laser standby for that procedure. Mao MD [facility] /[id number] cc: Emely Robles MD
== END | disposition home or self-care (01) ==
LOC: OR 09:57
PROVIDERS: ATTEND Urology
DX: N20.0 Calculus of kidney (principal); N39.0 Urinary tract infection, site not specified; N81.10 Cystocele, unspecified; N81.6 Rectocele; N36.2 Urethral caruncle; N95.2 Postmenopausal atrophic vaginitis; G47.33 Obstructive sleep apnea (adult) (pediatric); R00.1 Bradycardia, unspecified; J44.9 Chronic obstructive pulmonary disease, unspecified; I10 Essential (primary) hypertension; E11.9 Type 2 diabetes mellitus without complications; K21.9 Gastro-esophageal reflux disease without esophagitis; Z01.810 Encounter for preprocedural cardiovascular examination; Z01.812 Encounter for preprocedural laboratory examination; Z01.818 Encounter for other preprocedural examination; Z11.59 Encounter for screening for other viral diseases; Z87.891 Personal history of nicotine dependence
CPT/HCPCS: 36415 ×2; 50590; 52332; 71046; 74018; 80048; 82948; 83970; 84550; 85025; 93005; C1758; C1769; C2617; J0696; J1100; J2001; J2405; J2704; J3010; Q9967; U0002

== ENCOUNTER → 2020-02-24 | Day surgery (SDC) | payer MEDICARE ==
[2020-02-19 12:35] LABS: BASOPHILS # (AUTO) 0.1 (0.0-0.1); BASOPHILS % 0.9 % (0.0-1.0); EOSINOPHILS # (AUTO) 0.1 (0.0-0.4); EOSINOPHILS % 1.3 % (0.0-6.0); HEMATOCRIT 42.1 % (34.2-44.1); HEMOGLOBIN 12.9 g/dL (12.0-16.0); LYMPHOCYTES # (AUTO) 1.6 (1.0-3.2); LYMPHOCYTES % 24.6 % (18.0-39.1); MEAN CORPUSCULAR HEMOGLOBIN 27.2 pg (28-32); MEAN CORPUSCULAR HGB CONC 30.6 g/dL (31-35); MEAN CORPUSCULAR VOLUME 88.6 fL (81-99); MONOCYTES # (AUTO) 0.6 (0.2-0.8); MONOCYTES % 9.4 % (4.4-11.3); NEUTROPHILS # (AUTO) 4.1 (2.1-6.9); NEUTROPHILS % 63.5 % (38.7-80.0); PLATELET COUNT 283 x10e3/uL (140-360); RED BLOOD COUNT 4.75 x10e6/uL (3.6-5.1); RED CELL DISTRIBUTION WIDTH 15.1 % (11.7-14.4)
[2020-02-19 12:59] LABS: BLOOD UREA NITROGEN 13 mg/dL (7-26); BUN/CREATININE RATIO 14 (6-25); CALCIUM 9.3 mg/dL (8.4-10.2); CARBON DIOXIDE 28 mmol/L (22-29); CHLORIDE 104 mmol/L (98-107); CREATININE, SERUM 0.92 mg/dL (0.57-1.11); EST GLOMERULAR FILTRATION RATE > 60 ML/MIN (60-); GLUCOSE 102 mg/dL (74-118); SODIUM 140 mmol/L (136-145)
[~2020-02-24] MED LIST changes: -DEXAMETHASONE SOD PHOS INJ 4 MG/ML VIAL ONE; +GENTAMICIN 80MG/NS 100 ML 100 ML IV ONE; -LIDOCAINE HCL 2% LOCAL INJ 5 ML SDV VIAL INJ ONE; -ONDANSETRON HCL INJ 2MG/ML 2ML 2 MG/ML VIAL ONE; +PHENAZOPYRIDINE HCL 100 MG TAB ONE; -PROPOFOL IV EMULSION 10 MG/ML 20 ML VIAL ONE; -SEVOFLURANE INHAL SOLN 250 ML PEN BTL ONE
[2020-02-24 13:55] VITALS: BP 143/85
--- NOTE | 2020-02-24 22:38 | Operative Report ---
DATE OF PROCEDURE: 02/24/2020 SURGEON: Mao Dominguez MD PREOPERATIVE DIAGNOSES: 1. Bilateral nephrolithiasis. 2. Left indwelling ureteral stent. POSTOPERATIVE DIAGNOSES: 1. Bilateral nephrolithiasis. 2. Left indwelling ureteral stent. 3. Grade 2 cystocele. 4. Grade 3-4 rectocele. 5. Mild urethral hypermobility. 6. Atrophic (senile) vaginitis. OPERATIVE PROCEDURES: Note, these were all staged procedures as part of multi-staged and multi-step process in managing the patient's urolithiasis. 1. Right-sided extracorporeal shockwave lithotripsy (separate procedure performed for the right-sided nephrolithiasis). 2. Cystourethroscopy with complicated removal of left indwelling ureteral stent (separate procedure performed and separate scope for the diagnosis of stent). 3. Left ureteroscopy with stone manipulation and extraction (separate procedure performed for the left nephrolithiasis done with different scope). 4. Urological Services with supervision and interpretation of ureteroscopy. 5. Interpretation of retrograde ureteropyelography. 6. Supervision of fluoroscopy. 7. Pelvic examination under anesthesia. ANESTHESIA: General. COMPLICATIONS: None. CLINICAL SUMMARY: Shwetha Thompson is an 84-year-old woman with urolithiasis. She underwent left ESWL with placement of stent. She is brought for the above procedures. She is aware of the risks of bleeding, infection, injury to adjacent structures, need for additional procedures and elected to proceed. OPERATIVE PROCEDURE IN DETAIL: Informed was verified. Shwetha Thompson was properly identified, taken to the operating room, placed on the lithotripsy table in the supine position. Anesthesia was uneventfully begun. The patient's right nephrolithiasis was localized with biplanar fluoroscopy. A total of 3000 shocks were delivered with fragmentation noted. The patient was carefully and gently repositioned in the dorsal lithotomy position with all pressure points well padded. Her genitalia were prepared and draped in usual sterile fashion. The cystoscope sheath with obturator in place was atraumatically inserted into the patient's urethra and bladder was drained. Panendoscopy revealed no suspicious mucosal lesions, no tumors, no stones, and no diverticula. A stent was identified emerging from the left ureteral orifice. A guidewire was then placed into the left ureter and guided to the level of the patient's kidney. The stent was then grasped completely, removed and discarded. Semi-rigid ureteroscope was then inserted alongside the guidewire and guided into the patient's left ureter. The distal ureter exhibited no stones, no tumors, no suspicious lesions. A secondary guidewire was utilized. A flexible ureteroscopy was then performed. Panendoscopy of the intrarenal collecting system revealed Valentin's plaques also revealed numerous small stones as well as calcification material that is imbedded into the mucosa of the lower pole calyx. We grasped a cluster of stone and calcium material and extracted it. We performed additional ureteroscopy, where we vigorously irrigated to loosen all the sand, which we felt was accomplished and this sand was too small to grasp with a Nitinol tipless basket, which should be easily passable. We were able to irrigate the sand out of the lower pole calyx and into the renal pelvis, so that it could more easily pass. We carefully re-examined the ureter as we exited, it exhibited no stones, no strictures, and no suspicious lesions. The patient's bladder was drained. Cystoscope was withdrawn. Interpretation of retrograde ureteropyelography; contrast was instilled on the left hand side by the ureteroscope. There was chronic-appearing hydronephrosis. There were calcifications noted in the lower pole calyx, but these were described above. The ureter was unremarkable and unobstructed drainage was observed fluoroscopically. Pelvic examination under anesthesia revealed mild urethral hypermobility with a grade 2 cystocele. There was a grade 3-4 rectocele, which is worse than we previously appreciated on prior examination. There was atrophic (senile) vaginitis. There were no obvious mucosal lesions. No abnormal palpable pelvic masses could be appreciated. The patient was then uneventfully reversed from anesthesia and taken to recovery room in stable condition. There were no complications to the procedure. She tolerated the procedure well. Explicit postop instructions were given and we will follow the patient up in the office in about a month after which we will proceed with a metabolic stone workup and ongoing urological followup. Mao Dominguez MD [facility]/MOD[facility] /[id number] cc: Emely Robles MD
== END | disposition home or self-care (01) ==
LOC: OR 08:42
PROVIDERS: ATTEND Urology
DX: N20.0 Calculus of kidney (principal); Z46.6 Encounter for fitting and adjustment of urinary device; N81.10 Cystocele, unspecified; N81.6 Rectocele; N36.41 Hypermobility of urethra; N95.2 Postmenopausal atrophic vaginitis; N13.30 Unspecified hydronephrosis; N28.89 Other specified disorders of kidney and ureter; G47.33 Obstructive sleep apnea (adult) (pediatric); J44.9 Chronic obstructive pulmonary disease, unspecified; I10 Essential (primary) hypertension; E78.5 Hyperlipidemia, unspecified; K21.9 Gastro-esophageal reflux disease without esophagitis; Z88.6 Allergy status to analgesic agent; Z88.8 Allergy status to other drugs, medicaments and biological substances; Z01.812 Encounter for preprocedural laboratory examination; Z20.828 Contact with and (suspected) exposure to other viral communicable diseases; Z87.891 Personal history of nicotine dependence
CPT/HCPCS: 36415 ×2; 50590; 52352; 80048; 82948; 85025; 88300; C1758; C1766; C1769; J0696; J1580; J3010; Q9967; U0002